=== PATIENT | male | born 1955 | race Caucasian/White ===

== ENCOUNTER 2017-06-12 08:20 | Inpatient (IN) | payer OTHER ==
[~2017-06-12] VITALS: Ht 175.3 cm; Wt 140.7 kg
[~2017-06-12 08:20] MED LIST: ASPI325T PO; HYDR10TA16 PO; METO50TA PO; SIMV20 PO
[2017-06-12 08:26] VITALS: BP 185/92; PULSE 80; RESP 18; TEMP 97.3; O2SAT 95
[2017-06-12] MEDS ORDERED: SODIUM CHLORIDE 0.9% FLUSH 10 ML FLUSH IV FLUSH PRN ×2 (09:00→11:45)
[2017-06-12] MEDS ORDERED: ONDANSETRON HCL 4 MG/2 ML VIAL IVP ONE (09:00)
[2017-06-12] MEDS ORDERED: SODIUM CHLORID 0.9% 500 ML INJ 500 ML IV ONE (09:00)
[2017-06-12] MEDS ORDERED: MORPHINE SULFATE 4 MG/ML INJ IV PUSH ONE ×2 (09:00→09:30)
[2017-06-12 09:05] VITALS: BP 177/101; PULSE 83; RESP 18; O2SAT 99
[2017-06-12 09:25] LABS: INTERNATIONAL NORMALIZED RATIO 1.1 RATIO; PROTHROMBIN TIME - PATIENT 10.8 SEC (9.8-11.6)
[2017-06-12 09:26] LABS: AUTOMATED NEUTROPHIL # 9.9 TH/MM3 (1.8-7.7); BASOPHIL % 0.3 % (0.0-2.0); EOSINOPHIL # 0.1 TH/MM3 (0-0.4); EOSINOPHIL % 0.8 % (0.0-4.0); HEMOGLOBIN 14.2 GM/DL (13.0-17.0); LYMPH % 10.1 % (9.0-44.0); LYMPHOCYTE # 1.2 TH/MM3 (1.0-4.8); MEAN CELL VOLUME 89.8 FL (80.0-100.0); MEAN CORPUSCULAR HEMOGLOBIN 31.1 PG (27.0-34.0); MEAN CORPUSCULAR HGB CONC 34.7 % (32.0-36.0); MEAN PLATELET VOLUME 7.8 FL (7.0-11.0); MONOCYTE # 0.5 TH/MM3 (0-0.9); NEUT % 84.8 % (16.0-70.0); PLATELET COUNT 398 TH/MM3 (150-450); RED BLOOD COUNT 4.57 MIL/MM3 (4.50-5.90); RED CELL DISTRIBUTION WIDTH 12.4 % (11.6-17.2); WHITE BLOOD COUNT 11.7 TH/MM3 (4.0-11.0)
[2017-06-12 09:53] LABS: ALBUMIN 3.4 GM/DL (3.4-5.0); BICARBONATE 24.2 MEQ/L (21.0-32.0); BLOOD UREA NITROGEN 21 MG/DL (7-18); GLUCOSE,RANDOM 275 MG/DL (74-106)
[2017-06-12 09:55] LABS: ALT (GPT) 28 U/L (12-78)
[2017-06-12 09:56] LABS: GLOMERULAR FILTRATION RATE 75 ML/MIN (>89)
[2017-06-12 09:57] LABS: TOTAL PROTEIN 7.7 GM/DL (6.4-8.2)
[2017-06-12 09:59] LABS: ALKALINE PHOSPHATASE 91 U/L (45-117)
[2017-06-12 10:01] LABS: AST (GOT) 16 U/L (15-37)
[2017-06-12 10:02] LABS: CHLORIDE 104 MEQ/L (98-107); SODIUM (NA) 137 MEQ/L (136-145)
[2017-06-12 10:09] LABS: TOTAL BILIRUBIN ADULT 0.9 MG/DL (0.2-1.0)
--- NOTE | 2017-06-12 10:10 | PD ---
HPI Chief Complaint: Abdominal Pain Time Seen by Provider: 08:49 Travel History International Travel<30 days: No Contact w/Intl Traveler<30days: No Traveled to known affect area: No History of Present Illness HPI Patient is a 61-year-old male who comes in complaining of abdominal pain. He says the pain is across his lower abdomen and started early this morning. He says he has had pain like this before when he is to eat broccoli. He is no longer eating broccoli, so he does not know what is causing his pain. He denies any vomiting. He says he had a small hard bowel movement this morning, but irregular when yesterday. He denies fever chills. He has not taken anything for the pain. He says that movement makes the pain worse. Severity is moderate. PFSH Past Medical History Hx Anticoagulant Therapy: Yes Blood Disorders: No Cancer: No Cardiovascular Problems: No Diminished Hearing: No Endocrine: No Genitourinary: No Immune Disorder: No Musculoskeletal: No Neurologic: No Psychiatric: No Reproductive: No Respiratory: No Myocardial Infarction: Yes Influenza Vaccination: No ?: Not Past Surgical History Abdominal Surgery: No AICD: No Arteriovenous Shunt: No Cardiac Surgery: No Coronary Artery Bypass Graft: Yes (quadruple) Ear Surgery: No Endocrine Surgery: No Eye Surgery: No Genitourinary Surgery: No Gynecologic Surgery: No Insulin Pump: No Joint Replacement: No Oral Surgery: No Pacemaker: No Thoracic Surgery: No Social History Alcohol Use: Yes Tobacco Use: No Substance Use: No Allergies-Medications (Allergen,Severity, Reaction): Coded Allergies: azithromycin (Unverified Allergy, Severe, Rash, 06/12/17) Reported Meds & Prescriptions Reported Meds & Active Scripts Active Reported Simvastatin 20 Mg Tab 20 Mg PO DAILY Meloxicam 15 Mg Tab 15 Mg PO DAILY Metoprolol Tartrate 50 Mg Tab 50 Mg PO DAILY Aspirin 325 Mg Tab 325 Mg PO DAILY Review of Systems Except as stated in HPI: all other systems reviewed are Neg General / Constitutional: No: Fever, Chills HENT: No: Headaches, Lightheadedness Cardiovascular: No: Chest Pain or Discomfort Respiratory: No: Shortness of Breath Gastrointestinal: Positive: Abdominal Pain, Constipation, No: Nausea, Vomiting Genitourinary: No: Dysuria Musculoskeletal: No: Myalgias, Edema Skin: No Rash, No Change in Pigmentation Neurologic: No: Weakness, Dizziness Physical Exam Narrative GENERAL: Awake and alert, no acute distress. SKIN: Focused skin assessment warm/dry. No wounds or signs of infection. HEAD: Atraumatic. Normocephalic. EYES: Pupils equal and round. No scleral icterus. ENT: Mucous membranes pink and moist. NECK: Trachea midline. No JVD. CARDIOVASCULAR: Regular rate and rhythm. No murmur appreciated. RESPIRATORY: No accessory muscle use. Clear to auscultation. Breath sounds equal bilaterally. GASTROINTESTINAL: Abdomen soft, nondistended. Tender to palpation across the lower abdomen. No rebound or guarding. Bowel sounds present. MUSCULOSKELETAL: No obvious deformities. No clubbing. No cyanosis. No edema. NEUROLOGICAL: Awake and alert. No obvious cranial nerve deficits. Motor grossly within normal limits. Normal speech. PSYCHIATRIC: Appropriate mood and affect; insight and judgment normal. Data Data Last Documented VS Vital Signs Date Time Temp Pulse Resp B/P (MAP) Pulse Ox O2 Delivery O2 Flow Rate FiO2 06/12/17 10:52 80 18 188/86 (120) 99 06/12/17 09:05 Room Air 06/12/17 08:26 97.3 Orders Orders Complete Blood Count With Diff (06/12/17 08:52) Comprehensive Metabolic Panel (06/12/17 08:52) Lipase (06/12/17 08:52) Lactic Acid (06/12/17 08:52) Prothrombin Time / Inr (Pt) (06/12/17 08:52) Act Partial Throm Time (Ptt) (06/12/17 08:52) Urinalysis - C+S If Indicated (06/12/17 08:52) Ct Abd/Pel W Iv Contrast(Rout) (06/12/17 08:52) Iv Access Insert/Monitor (06/12/17 08:52) Ecg Monitoring (06/12/17 08:52) Oximetry (06/12/17 08:52) Morphine Inj (Morphine Inj) (06/12/17 09:00) Ondansetron Inj (Zofran Inj) (06/12/17 09:00) Sodium Chloride 0.9% Flush (Ns Flush) (06/12/17 09:00) Sodium Chlorid 0.9% 500 Ml Inj (Ns 500 M (06/12/17 09:00) Morphine Inj (Morphine Inj) (06/12/17 09:30) Iohexol 350 Inj (Omnipaque 350 Inj) (06/12/17 10:24) Hydromorphone Pf Inj (Dilaudid Pf Inj) (06/12/17 11:00) Ketorolac Inj (Toradol Inj) (06/12/17 11:00) Admit Order (Ed Use Only) (06/12/17 ) Labs Laboratory Tests Test 06/12/17 08:48 06/12/17 09:25 06/12/17 10:45 White Blood Count 11.7 TH/MM3 Red Blood Count 4.57 MIL/MM3 Hemoglobin 14.2 GM/DL Hematocrit 41.0 % Mean Corpuscular Volume 89.8 FL Mean Corpuscular Hemoglobin 31.1 PG Mean Corpuscular Hemoglobin Concent 34.7 % Red Cell Distribution Width 12.4 % Platelet Count 398 TH/MM3 Mean Platelet Volume 7.8 FL Neutrophils (%) (Auto) 84.8 % Lymphocytes (%) (Auto) 10.1 % Monocytes (%) (Auto) 4.0 % Eosinophils (%) (Auto) 0.8 % Basophils (%) (Auto) 0.3 % Neutrophils # (Auto) 9.9 TH/MM3 Lymphocytes # (Auto) 1.2 TH/MM3 Monocytes # (Auto) 0.5 TH/MM3 Eosinophils # (Auto) 0.1 TH/MM3 Basophils # (Auto) 0.0 TH/MM3 CBC Comment DIFF FINAL Differential Comment Prothrombin Time 10.8 SEC Prothromb Time International Ratio 1.1 RATIO Activated Partial Thromboplast Time 26.7 SEC Blood Urea Nitrogen 21 MG/DL Creatinine 1.00 MG/DL Random Glucose 275 MG/DL Total Protein 7.7 GM/DL Albumin 3.4 GM/DL Calcium Level 9.0 MG/DL Alkaline Phosphatase 91 U/L Aspartate Amino Transf (AST/SGOT) 16 U/L Alanine Aminotransferase (ALT/SGPT) 28 U/L Total Bilirubin 0.9 MG/DL Sodium Level 137 MEQ/L Potassium Level 4.1 MEQ/L Chloride Level 104 MEQ/L Carbon Dioxide Level 24.2 MEQ/L Anion Gap 9 MEQ/L Estimat Glomerular Filtration Rate 75 ML/MIN Lipase 207 U/L Lactic Acid Level 2.1 mmol/L Urine Collection Type CLEAN CATCH Urine Color YELLOW Urine Turbidity CLEAR Urine pH 5.0 Urine Specific [place] 1.020 Urine Protein NEG mg/dL Urine Glucose (UA) 500 mg/dL Urine Ketones NEG mg/dL Urine Occult Blood TRACE Urine Nitrite NEG Urine Bilirubin NEG Urine Urobilinogen 0.2 MG/DL Urine Leukocyte Esterase NEG Urine RBC 4-9 /hpf Urine WBC 0-2 /hpf Urine Squamous Epithelial Cells 0-5 /hpf Microscopic Urinalysis Comment CULT NOT INDICATED Urine Collection Time 10:45 MDM Medical Decision Making Medical Screen Exam Complete: Yes Emergency Medical Condition: Yes Medical Record Reviewed: Yes Differential Diagnosis diverticulitis vs UTI vs colitis vs renal stone Narrative Course Patient is a 61 year old male who comes in complaining of lower abdominal pain. Exam shows tenderness across the lower abdomen. IV established, labs sent. Labs show lactic acid of 2.1, Cr of 1.0. CT abdomen/pelvis performed shows large renal stones. Last 24 hours Impressions Abdomen/Pelvis CT 06/12/17 0852 Signed Impressions: Service Date/Time: Monday, June 12, 2017 10:17 - CONCLUSION: 1. The patient's pain is caused by a stone in the left UPJ causing left hydronephrosis and perinephric inflammation. The stone measures 10 x 8 x 12 mm. 2. There is an additional 2 mm nonobstructing left renal stone and a nonobstructing right renal stone measuring 16 x 8 mm. 3. There is a large right inguinal hernia containing fat and a portion of the urinary bladder. 4. There is a lesion within the liver measuring 2 cm. It enhances but is incompletely characterized on this examination. The appearance may be consistent with a hemangioma. Suggest correlating with any prior imaging study that could confirm stability or offer additional characterization. If none are available consider liver ultrasound or liver protocol MRI with and without intravenous contrast for additional characterization. 5. Nonacute findings include cholelithiasis and mild atherosclerotic disease. Balwinder Dia MD Inguinal hernias are reducible. I spoke with Dr. Aguilar of urology who will place a ureteral stent. Patient required several rounds of pain medicine for pain control. Admitted for further management. Diagnosis Primary Impression: Hydronephrosis with renal and ureteral calculous obstruction Admitting Information Admitting Physician Requests: Admit Brittni Wright MD June 12, 2017 10:09
[2017-06-12] MEDS ORDERED: IOHEXOL 350 MG/ML 10 ML VIAL (for RAD DIAG) IVCONTRAST ONE (10:24)
[2017-06-12] MEDS ORDERED: ASPI-183 PO (10:34)
[2017-06-12] MEDS ORDERED: SIMV20TA PO (10:34)
[2017-06-12] MEDS ORDERED: MELO15TA20 PO (10:34)
[2017-06-12] MEDS ORDERED: METO50TA PO (10:34)
--- NOTE | 2017-06-12 10:39 | RADRPT ---
EXAM DATE/TIME: 06/12/2017 10:17 [facility] COMPARISON: No previous studies available for comparison. INDICATIONS : Left lower quadrant pain. IV CONTRAST: 95 cc Omnipaque 350 (iohexol) IV ORAL CONTRAST: No oral contrast ingested. RADIATION DOSE: 24.58 CTDIvol (mGy) MEDICAL HISTORY : Cardiovascular disease. SURGICAL HISTORY : CABG ENCOUNTER: Initial ACUITY: 1 day PAIN SCALE: 8/10 LOCATION: Left lower quadrant TECHNIQUE: Volumetric scanning of the abdomen and pelvis was performed. Using automated exposure control and ad justment of the mA and/or kV according to patient size, radiation dose was kept as low as reasonably achievable to obtain optimal diagnostic quality images. DICOM format image data is available electro nically for review and comparison. FINDINGS: LOWER LUNGS: Lung bases demonstrate no acute finding. LIVER: Liver densities suggest steatosis. Within the left lobe there is an enhancing lesion measuring 2 cm. The enhancement appears to be along the periphery. No other liver lesion is seen. There is no dilati on of the biliary tree. There are small calcified stones in the gallbladder. No gallbladder wall thic kening or inflammation is present. SPLEEN: Normal size without lesion. PANCREAS: Within normal limits. KIDNEYS: There is left perinephric inflammation with mild left hydronephrosis caused by a stone at the uretero pelvic junction measuring 10 x 8 x 12 mm. There is an additional 2 mm nonobstructing stone in the lef t lower pole collecting system and there is a nonobstructing stone in the right lower pole collecting system measuring 16 x 8 mm. ADRENAL GLANDS: Within normal limits. VASCULAR: There is no aortic aneurysm. There is mild atherosclerotic disease. BOWEL/MESENTERY: The stomach, small bowel, and colon demonstrate no acute abnormality. There is no free intraperitone al air or fluid. ABDOMINAL WALL: Within normal limits. RETROPERITONEUM: There is no lymphadenopathy. BLADDER: The urinary bladder on the right extends into a right inguinal hernia. REPRODUCTIVE: Within normal limits. INGUINAL: There is a large right inguinal hernia containing fat and the urinary bladder. A small fat containing left inguinal hernia is present. There is no lymphadenopathy. MUSCULOSKELETAL: There are degenerative changes of the lumbar spine. CONCLUSION: 1. The patient's pain is caused by a stone in the left UPJ causing left hydronephrosis and perinephri c inflammation. The stone measures 10 x 8 x 12 mm. 2. There is an additional 2 mm nonobstructing left renal stone and a nonobstructing right renal stone measuring 16 x 8 mm. 3. There is a large right inguinal hernia containing fat and a portion of the urinary bladder. 4. There is a lesion within the liver measuring 2 cm. It enhances but is incompletely characterized o n this examination. The appearance may be consistent with a hemangioma. Suggest correlating with any prior imaging study that could confirm stability or offer additional characterization. If none are av ailable consider liver ultrasound or liver protocol MRI with and without intravenous contrast for add itional characterization. 5. Nonacute findings include cholelithiasis and mild atherosclerotic disease. Balwinder Dia MD on June 12, 2017 at 10:30 Board Certified Radiologist. This report was verified electronically.
[2017-06-12 10:50] LABS: BILIRUBIN, URINE NEG (NEG); BLOOD, URINE TRACE (NEG); GLUCOSE,URINE 500 mg/dL (NEG); KETONE, URINE NEG (NEG); NITRITE,URINE NEG (NEG); URINE COLOR YELLOW (YELLW/STRAW); URINE LEUKOCYTE ESTERASE NEG (NEG)
[2017-06-12 10:52] VITALS: BP 188/86; PULSE 80; RESP 18; O2SAT 99
[2017-06-12 10:56] LABS: SQUAMOUS EPITHELIAL CELL URINE 0-5 /hpf (0-5); WBC, URINE 0-2 /hpf (0-5)
[2017-06-12] MEDS ORDERED: KETOROLAC TROMETHAMINE 30 MG/ML (IVP) VIAL IV PUSH ONE (11:00)
[2017-06-12] MEDS ORDERED: HYDROmorphone HCL PF 0.5 MG/0.5 ML SYRINGE IV PUSH ONE (11:00)
[2017-06-12] MEDS ORDERED: KETOROLAC TROMETHAMINE 30 MG/ML (IVP) VIAL IV PUSH PRN (11:45)
[2017-06-12] MEDS ORDERED: METOPROLOL TARTRATE 25 MG TAB ONE (12:05)
[2017-06-12] MEDS ORDERED: ceFAZolin 2 GM PREMIX 50 ML ONE (12:05)
[2017-06-12] MEDS ORDERED: fentaNYL CITRATE 250 MCG/5 ML AMP ONE (12:19)
[2017-06-12] MEDS ORDERED: FAMOTIDINE 20 MG/2 ML VIAL ONE (12:24)
[2017-06-12] MEDS ORDERED: LACTATED RINGER'S 1000 ML IV PRN (12:30)
[2017-06-12] MEDS ORDERED: CHLORHEXIDINE GLUCONATE 2 % 1 PACK (2 CLOTHS) TOPICAL PRN (12:30)
[2017-06-12] MEDS ORDERED: SODIUM CHLORID 0.9% 500 ML IV PRN (12:30)
[2017-06-12] MEDS ORDERED: POVIDONE IODINE 5% (ANTISEPSIS KIT) 4 APPLICATIONS EACH NARE PRN (12:30)
[2017-06-12] MEDS ORDERED: ceFAZolin 2 GM/DEX PREMIX 50 ML IV SCH (12:30)
[2017-06-12] MEDS ORDERED: METOPROLOL TARTRATE 25 MG TAB PO PRN (12:30)
--- NOTE | 2017-06-12 13:39 | MB ---
cc: JeffRegErick W DO DATE: 06/12/2017 DATE OF CONSULTATION: 06/12/2017. HISTORY OF PRESENT ILLNESS: This is a 61-year-old male who presented to the [facility] with lower abdominal pain radiating on the left side. He underwent a CT scan which demonstrated an 11 x 6 stone at the area of the UPJ with mild to moderate hydronephrosis. He denies any prior history of stones. He denies any fever or chills. PAST MEDICAL HISTORY: Noted for history of an NM 8 years ago. At that time, he underwent coronary artery bypass grafting surgery. 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 He also has high cholesterol and hypertension. PAST SURGICAL HISTORY: Again, only for a CABG x4 eight years ago after an NM. SOCIAL HISTORY: He does drink alcohol on occasion. Denies smoking or drinking. FAMILY HISTORY: Denies a history of prostate cancer. ALLERGIES: AZITHROMYCIN. MEDICATIONS: Please refer to the chart. REVIEW OF SYSTEMS: He denies any fever or chills. Denies any headaches or lightheadedness. Denies chest pain or discomfort. Denies shortness of breath. He does have abdominal pain with constipation, but denies nausea or vomiting. He denies any difficulty with urination or lower extremity edema, but he does have pain in his feet at times due to arthritis. He denies any rashes. Denies any weakness or dizziness. PHYSICAL EXAMINATION: PRESENT VITAL SIGNS TODAY: His temperature is 97.3, heart rate 83, respiratory rate 18, 188/86 blood pressure. GENERAL: He is an obese 61-year-old male in no acute distress. HEENT: Normocephalic, atraumatic. Pupils equal, round, regular and reactive to light. Extraocular movements intact. NECK: Supple. HEART: Regular rate and rhythm. LUNGS: Clear. ABDOMEN: Soft. Minimal left-sided tenderness is noted and left lower quadrant tenderness is noted. GENITOURINARY: Uncircumcised phallus. Testes are descended. EXTREMITIES: Show no evidence of cyanosis, clubbing or edema. NEUROLOGIC: Cranial nerves 2-12 are intact. LABORATORY DATA: White count is 11.7, hemoglobin 14.2, hematocrit 41.0, platelet count of 398. Sodium 137, potassium 4.1, chloride 104, CO2 24.3, BUN of 21, creatinine 1.0, glucose of 275. Urinalysis shows 4-9 red cells, 0-2 white cells, nitrite and leukocyte esterase are negative. IMAGING STUDIES: Again, imaging study demonstrates a UPJ stone on the left side measuring 10 x 8 x 12 mm and there is a 2 mm nonobstructing left renal stone also identified as well as one on the right side measuring 16 x 8 mm. ASSESSMENT AND PLAN: A 61-year-old male with a large left renal calculus at the ureteropelvic junction causing obstruction with hydronephrosis. Recommend cystoscopy with left double-J stent insertion. Risks and benefits were discussed and he is willing to proceed. After his stent is inserted and placed, he will need left extracorporeal shock wave lithotripsy on the left side, followed by right extracorporeal shockwave lithotripsy for his large right lower pole stone. DO JULIANE Rankin/JULIO , 01:22 PM , 01:38 PM
--- NOTE | 2017-06-12 13:44 | MP ---
cc: Erick Aguilar DO DATE OF OPERATION: 06/12/2017 PREOPERATIVE DIAGNOSIS: Left hydronephrosis with left ureteropelvic junction stone. POSTOPERATIVE DIAGNOSIS: Left hydronephrosis with left ureteropelvic junction stone. PROCEDURE PERFORMED: Cystoscopy with left double-J stent insertion. SURGEON: MD Jeff ANESTHESIA: General LMA. FLUIDS: 500 mL crystalloid. ESTIMATED BLOOD LOSS: No blood loss. COMPLICATIONS: No complications. CONDITION ON DISCHARGE: He tolerated the procedure well, was awoken and transferred to the recovery room in stable condition. INDICATIONS FOR PROCEDURE: Mr. Saavedra is a is a 61-year-old male who presented with left-sided abdominal pain and flank pain this morning to the [facility]. CT scan revealed a 10 x 8 x 12 mm left UPJ stone causing obstruction. Decision was made to bring the patient to the operating room to undergo cystoscopy, left double-J stent insertion. OPERATIVE PROCEDURE: The patient was brought to the operating room and identified by myself as Arash Saavedra. He was placed in the dorsal lithotomy position, prepped and draped in the usual sterile fashion, received preprocedure antibiotics and general LMA anesthesia was administered. A 22[place]izen [place] cystoscope was inserted in the bladder and the patient was noted to have a high-riding prostate and it was difficult to identify the left ureteral orifice. Once this was identified, I was able to advance a 5-[place]izen [place] open-ended catheter, but the ureter dived downward and then went up near its outlet in the bladder making it difficult to pass the wire. A 0.035 ZIPwire was then passed through the open-ended catheter and this was able to go up, but the open-ended catheter was curling in the bladder. Therefore, the wire was then removed and then an the open-ended catheter was reinserted into the left ureteral orifice. A 0.035 Sensor wire was then able to pass up into the kidney and the open-ended catheter was removed. At this point in time, a 6-[place]izen [place], 24-cm left double-J stent was placed with a good curl in the kidney and bladder. He tolerated the procedure well and was awakened and transferred to Recovery in stable condition. He will followup for left extracorporeal shock wave lithotripsy in the future. He will need to hold his aspirin preoperatively for 1 week. After that he will need right-sided extracorporeal shockwave lithotripsy for the 16 x 8 mm stone in the right lower pole. DO JULIANE Rankin/JULIO , 01:26 PM , 01:43 PM
--- NOTE | 2017-06-12 15:13 | HHI.DCPOC ---
Discharge Care Plan Diagnosis: (1) Stone in kidney Goals to Promote Your Health * To prevent worsening of your condition and complications * To maintain your health at the optimal level Directions to Meet Your Goals Take your medications as prescribed Follow your dietary instruction Follow activity as directed Keep your appointments as scheduled Take your immunizations and boosters as scheduled If your symptoms worsen call your PCP, if no PCP go to Urgent Care Center or Emergency Room Smoking is Dangerous to Your Health. Avoid second hand smoke Call the 24-hour hour crisis hotline for domestic abuse at Ramila Faith MD June 12, 2017 15:13
--- NOTE | 2017-06-12 15:15 | EKG ---
Date Performed: 06/12/2017 Time Performed: 11:33:18 PTAGE: 61 years EKG: Sinus rhythm NORMAL ECG No significant change from prior electrocardiogram. DOCTOR: Julio Ross Interpretating Date/Time 06/12/2017 15:13:30
--- NOTE | 2017-06-12 15:19 | HHI.HP ---
[facility] Unknown Admission Diagnosis large obstructing renal stone, new onset diabetes Diagnoses: Chief Complaint: Flank pain Travel History International Travel<30 Days: No Contact w/Intl Traveler <30 Da: No Traveled to Known Affected Are: No History of Present Illness Patient is a 61-year-old gentleman with a history of coronary artery disease who came in with acute onset of flank and abdomen pain. Patient reports no fevers or chills. Has not had any dysuria. He says movement makes the pain worse and was improved with morphine and Dilaudid. Patient was seen in the emergency room did have a CT of abdomen pelvis which did show a rather large stone in the left UPJ with associated hydronephrosis and perinephric inflammation. Stone was 10 x 8 x 12 mm. Patient is now status post cystoscopy with double-J stenting by urology. Initially his blood pressure was quite elevated his sugar was elevated. Patient was having quite a bit of pain. Since his procedures blood pressure sugar have improved and patient will be discharged home Review of Systems Constitutional: DENIES: Diaphoretic episodes, Fatigue, Fever, Weight gain, Weight loss, Chills, Dizziness, Change in appetite, Night Sweats Eyes: DENIES: Blurred vision, Diplopia, Eye inflammation, Eye pain, Vision loss , Photosensitivity, Double Vision Ears, nose, mouth, throat: DENIES: Tinnitus, Hearing loss, Vertigo, Nasal discharge, Oral lesions, Throat pain, Hoarseness, Ear Pain, Running Nose, Epistaxis, Sinus Pain, Toothache, Odynophagia Respiratory: DENIES: Apneas, Cough, Snoring, Wheezing, Hemoptysis, Sputum production, Shortness of breath Cardiovascular: DENIES: Chest pain, Palpitations, Syncope, Dyspnea on Exertion , PND, Lower Extremity Edema, Orthopnea, Claudication Gastrointestinal: COMPLAINS OF: Abdominal pain, DENIES: Black stools, Bloody stools, Constipation, Diarrhea, Nausea, Vomiting, Difficulty Swallowing, Anorexia Genitourinary: DENIES: Sexual dysfunction, Urinary frequency, Urinary incontinence, Urgency, Hematuria, Dysuria, Nocturia, Penile Discharge, Testicular Pain, Testicular Swelling Musculoskeletal: DENIES: Joint pain, Muscle aches, Stiffness, Joint Swelling, Back pain, Neck pain Integumentary: DENIES: Abnormal pigmentation, Nail changes, Pruritus, Rash Hematologic/lymphatic: DENIES: Bruising, Lymphadenopathy Immunologic/allergic: DENIES: Eczema, Urticaria Neurologic: DENIES: Abnormal gait, Headache, Localized weakness, Paresthesias, Seizures, Speech Problems, Tremor, Poor Balance Psychiatric: DENIES: Anxiety, Confusion, Mood changes, Depression, Hallucinations, Agitation, Suicidal Ideation, Homicidal Ideation, Delusions Except as stated in HPI: all other systems reviewed are Neg Past Family Social History Past Medical History Hyperlipidemia and coronary artery disease Past Surgical History Cardiac bypass Reported Medications Reviewed in the EMR, nothing new Allergies: Coded Allergies: azithromycin (Unverified Allergy, Severe, Rash, 06/12/17) Active Ordered Medications Reviewed in the EMR Family History Coronary disease Social History No current tobacco or alcohol dependency, lives with his Physical Exam Vital Signs Vital Signs Date Time Temp Pulse Resp B/P (MAP) Pulse Ox O2 Delivery O2 Flow Rate FiO2 06/12/17 12:10 97.3 83 18 188/86 (120) 99 06/12/17 11:43 06/12/17 11:26 18 06/12/17 11:26 18 06/12/17 10:52 80 18 188/86 (120) 99 06/12/17 09:44 18 06/12/17 09:18 18 06/12/17 09:05 83 18 177/101 (126) 99 Room Air 06/12/17 08:26 97.3 80 18 185/92 (123) 95 Physical Exam GENERAL: This is a well-nourished, well-developed patient, in no apparent distress. SKIN: No rashes, ecchymoses or lesions. Cool and dry. HEAD: Atraumatic. Normocephalic. No temporal or scalp tenderness. EYES: Pupils equal round and reactive. Extraocular motions intact. No scleral icterus. No injection or drainage. ENT: Nose without bleeding, purulent drainage or septal hematoma. Throat without erythema, tonsillar hypertrophy or exudate. Uvula midline. Airway patent. NECK: Trachea midline. No JVD or lymphadenopathy. Supple, nontender, no meningeal signs. CARDIOVASCULAR: Regular rate and rhythm without murmurs, gallops, or rubs. RESPIRATORY: Clear to auscultation. Breath sounds equal bilaterally. No wheezes , rales, or rhonchi. GASTROINTESTINAL: Abdomen soft, non-tender, nondistended. No hepato-splenomegaly , or palpable masses. No guarding. MUSCULOSKELETAL: Extremities without clubbing, cyanosis, or edema. No joint tenderness, effusion, or edema noted. No calf tenderness. Negative Homans sign bilaterally. NEUROLOGICAL: Awake and alert. Cranial nerves II through XII intact. Motor and sensory grossly within normal limits. Five out of 5 muscle strength in all muscle groups. Normal speech. Laboratory Laboratory Tests Test 06/12/17 08:48 06/12/17 09:25 06/12/17 10:45 White Blood Count 11.7 Red Blood Count 4.57 Hemoglobin 14.2 Hematocrit 41.0 Mean Corpuscular Volume 89.8 Mean Corpuscular Hemoglobin 31.1 Mean Corpuscular Hemoglobin Concent 34.7 Red Cell Distribution Width 12.4 Platelet Count 398 Mean Platelet Volume 7.8 Neutrophils (%) (Auto) 84.8 Lymphocytes (%) (Auto) 10.1 Monocytes (%) (Auto) 4.0 Eosinophils (%) (Auto) 0.8 Basophils (%) (Auto) 0.3 Neutrophils # (Auto) 9.9 Lymphocytes # (Auto) 1.2 Monocytes # (Auto) 0.5 Eosinophils # (Auto) 0.1 Basophils # (Auto) 0.0 CBC Comment DIFF FINAL Differential Comment Prothrombin Time 10.8 Prothromb Time International Ratio 1.1 Activated Partial Thromboplast Time 26.7 Blood Urea Nitrogen 21 Creatinine 1.00 Random Glucose 275 Total Protein 7.7 Albumin 3.4 Calcium Level 9.0 Alkaline Phosphatase 91 Aspartate Amino Transf (AST/SGOT) 16 Alanine Aminotransferase (ALT/SGPT) 28 Total Bilirubin 0.9 Sodium Level 137 Potassium Level 4.1 Chloride Level 104 Carbon Dioxide Level 24.2 Anion Gap 9 Estimat Glomerular Filtration Rate 75 Lipase 207 Lactic Acid Level 2.1 Urine Collection Type CLEAN CATCH Urine Color YELLOW Urine Turbidity CLEAR Urine pH 5.0 Urine Specific [place] 1.020 Urine Protein NEG Urine Glucose (UA) 500 Urine Ketones NEG Urine Occult Blood TRACE Urine Nitrite NEG Urine Bilirubin NEG Urine Urobilinogen 0.2 Urine Leukocyte Esterase NEG Urine RBC 4-9 Urine WBC 0-2 Urine Squamous Epithelial Cells 0-5 Microscopic Urinalysis Comment CULT NOT INDICATED Urine Collection Time 10:45 Result Diagram: 06/12/17 0848 06/12/1748 Imaging Last Impressions Abdomen/Pelvis CT 06/12/17 0852 Signed Impressions: Service Date/Time: Monday, June 12, 2017 10:17 - CONCLUSION: 1. The patient's pain is caused by a stone in the left UPJ causing left hydronephrosis and perinephric inflammation. The stone measures 10 x 8 x 12 mm. 2. There is an additional 2 mm nonobstructing left renal stone and a nonobstructing right renal stone measuring 16 x 8 mm. 3. There is a large right inguinal hernia containing fat and a portion of the urinary bladder. 4. There is a lesion within the liver measuring 2 cm. It enhances but is incompletely characterized on this examination. The appearance may be consistent with a hemangioma. Suggest correlating with any prior imaging study that could confirm stability or offer additional characterization. If none are available consider liver ultrasound or liver protocol MRI with and without intravenous contrast for additional characterization. 5. Nonacute findings include cholelithiasis and mild atherosclerotic disease. MD Jh Vásquez VTE Risk Assessment Caprini VTE Risk Assessment: No/Low Risk (score <= 1) Caprini Risk Assessment Model Point Value = 1 Point Value = 2 Point Value = 3 Point Value = 5 Age 41-60 Minor surgery BMI > 25 kg/m2 Swollen legs Varicose veins or History of unexplained or recurrent spontaneous Oral contraceptives or hormone replacement Sepsis (< 1 month) Serious lung disease, including pneumonia (< 1 month) Abnormal pulmonary function Acute myocardial infarction Congestive heart failure (< 1 month) History of inflammatory bowel disease Medical patient at bed rest Age 61-74 Arthroscopic surgery Major open surgery (> 45 min) Laparoscopic surgery (> 45 min) Malignancy Confined to bed (> 72 hours) Immobilizing plaster cast Central venous access Age >= 75 History of VTE Family history of VTE Factor V Leiden Prothrombin [id number] Lupus anticoagulant Anticardiolipin antibodies Elevated serum homocysteine Heparin-induced thrombocytopenia Other congenital or acquired thrombophilia Stroke (< 1 month) Elective arthroplasty Hip, pelvis, or leg fracture Acute spinal cord injury (< 1 month) Prophylaxis Regimen Total Risk Factor Score Risk Level Prophylaxis Regimen 0-1 Low Early ambulation 2 Moderate Order ONE of the following: *Sequential Compression Device (SCD) *Heparin 5000 units SQ BID 3-4 Higher Order ONE of the following medications: *Heparin 5000 units SQ TID *Enoxaparin/Lovenox 40 mg SQ daily (WT < 150 kg, CrCl > 30 mL/min) *Enoxaparin/Lovenox 30 mg SQ daily (WT < 150 kg, CrCl > 10-29 mL/min) *Enoxaparin/Lovenox 30 mg SQ BID (WT < 150 kg, CrCl > 30 mL/min) AND/OR *Sequential Compression Device (SCD) 5 or more Highest Order ONE of the following medications: *Heparin 5000 units SQ TID (Preferred with Epidurals) *Enoxaparin/Lovenox 40 mg SQ daily (WT < 150 kg, CrCl > 30 mL/min) *Enoxaparin/Lovenox 30 mg SQ daily (WT < 150 kg, CrCl > 10-29 mL/min) *Enoxaparin/Lovenox 30 mg SQ BID (WT < 150 kg, CrCl > 30 mL/min) AND *Sequential Compression Device (SCD) Assessment and Plan Problem List: (1) Stone in kidney ICD Code: N20.0 - Calculus of kidney Plan: Status post cystoscopy with double-J stent. Continue to encourage hydration with outpatient follow-up Assessment and Plan Patient also to follow-up with his primary care doctor for elevated blood sugar and blood pressure. Discussed Condition With Patient, ER , PACU nursing Ramila Faith MD June 12, 2017 15:19
[2017-06-12 15:30] VITALS: BP 117/75; PULSE 68; RESP 16; TEMP 98; O2SAT 95
[2017-06-12] MEDS ORDERED: DO NOT ADM ANY ANTICOAGULANT DRUGS PRN (15:30)
[2017-06-12] MEDS ORDERED: SODIUM CHLORIDE 0.9% FLUSH 10 ML FLUSH IV FLUSH SCH (21:00)
== END 2017-06-14 05:28 | disposition home or self-care (01) | DRG 694 ==
LOC: PHED 08:20 → PHEDA 11:07
PROVIDERS: ADMIT Hospitalist; ATTEND Hospitalist
PROC: 0T778DZ Dilation of Left Ureter with Intraluminal Device, Via Natural or Artificial Opening Endoscopic (ICD-10-PCS; principal; 2017-06-12 12:18)
DX: N13.2 Hydronephrosis with renal and ureteral calculous obstruction (principal); E11.65 Type 2 diabetes mellitus with hyperglycemia; I25.10 Atherosclerotic heart disease of native coronary artery without angina pectoris; I10 Essential (primary) hypertension; E78.5 Hyperlipidemia, unspecified; I25.2 Old myocardial infarction; Z95.1 Presence of aortocoronary bypass graft
CPT/HCPCS: 74177; 76000; 80053; 81001; 82948; 83605; 83690; 85025; 85610; 85730; 93005; 96361; 96374; 96375; 96376; C1769; C2617; J0690; J1170; J1885; J2270; J2405; J3010; J7040; J7120; Q9967